=== PATIENT | female | born 1995 | race Caucasian/White ===

== ENCOUNTER 2019-08-10 20:02 | Emergency (ER) | payer MEDICAID, OTHER ==
[~2019-08-10] VITALS: Ht 160 cm; Wt 83.0 kg
[2019-08-10] MEDS ORDERED: NS IV 1000 ML 1,000 ML IV ONE (22:04)
--- NOTE | 2019-08-10 22:09 | ED Cough/URI ---
General Chief Complaint: Respiratory Problems Stated Complaint: SOB Nursing Triage Note: Pt ambulates to bed 1 with c/o SOB, nausea, and cough for 3 days. Pt states she's having more trouble breathing today. Pt appears short of breath with hoarse voice on arrival to room, O2 sat 100% on RA at this time. Pt denies any fever/chills. Sepsis Screen: No Definite Risk Source: patient Exam Limitations: no limitations History of Present Illness Date Seen by Provider: Aug 10, 2019 Time Seen by Provider: 22:08 Initial Comments 24-year-old female patient presents with complaints of shortness of breath, nausea, and cough for 3 days. Patient states she is having increased difficulty breathing today. Also c/o Hoarse voice, nasal congestion, and postnasal drainage. Patient denies fevers or chills. She does smoke 1 pack per day. began smoking at 12 yo. Timing/Duration: getting worse, other (3 day onset) Severity/Quality: productive cough (clear) Prior Episodes/Possible Cause: no prior episodes Modifying Factors: Worse With Coughing Allergies and Home Medications Allergies Coded Allergies: Penicillins (Verified Allergy, Unknown, 08/10/19) Home Medications Doxycycline Hyclate 100 Mg Tablet, 100 MG PO BID Prescribed by: FARHANA OWUSU on 08/11/19 0000 Prednisone 20 Mg Tab, 40 MG PO DAILY Prescribed by: FARHANA OWUSU on 08/11/19 0000 Patient Home Medication List Home Medication List Reviewed: Yes Review of Systems Review of Systems Constitutional: No chills, No dizziness, No fever; malaise EENTM: see HPI Respiratory: see HPI, cough; No dyspnea on exertion, No hemoptysis, No orthopnea; phlegm, short of breath; No stridor; wheezing Cardiovascular: No chest pain, No palpitations, No syncope Gastrointestinal: No abdominal pain, No constipation, No diarrhea; nausea; No vomiting Genitourinary: no symptoms reported Musculoskeletal: no symptoms reported Skin: no symptoms reported Psychiatric/Neurological: No Symptoms Reported All Other Systems Reviewed Negative Unless Noted: Yes (Negative excepted noted.) Past Chumwvz-Hidbqw-Evvzcw Hx Past Med/Social Hx: Reviewed Nursing Past Med/Soc Hx Patient Social History Alcohol Use: Denies Use Recreational Drug Use: No Smoking Status: Current Everyday Smoker Type Used: Cigarettes 2nd Hand Smoke Exposure: Yes Recent Foreign Travel: No Contact w/Someone Who Travel: No Recent Infectious Disease Expo: No Recent Hopitalizations: No Physical Abuse: No Sexual Abuse: No Mistreated: No Fear: No Seasonal Allergies Seasonal Allergies: Yes Past Medical History Surgeries: Yes Appendectomy, Gallbladder Respiratory: No Cardiac: No Neurological: No Genitourinary: No Gastrointestinal: No Musculoskeletal: No Endocrine: No HEENT: No Cancer: No Psychosocial: No Integumentary: No Family Medical History Reviewed Nursing Family Hx No Pertinent Family Hx Physical Exam Vital Signs - First Documented 08/10/19 20:06 Temp 36.7 Pulse 96 Resp 20 B/P (MAP) 96/69 (78) Pulse Ox 100 O2 Delivery Room Air Capillary Refill : Less Than 3 Seconds Height: '" Weight: lbs. oz. kg; 32.00 BMI Method: General Appearance: WD/WN, no apparent distress HEENT: PERRL/EOMI, TMs normal, pharyngeal erythema; No tonsillar exudate; other (positive nasal congestion) Neck: non-tender, full range of motion, supple, normal inspection Respiratory: lungs clear, no respiratory distress, no accessory muscle use, decreased breath sounds Cardiovascular: normal peripheral pulses, regular rate, rhythm, no edema, no gallop, no murmur Gastrointestinal: normal bowel sounds, non tender, soft, no organomegaly; No distended Extremities: no pedal edema, no calf tenderness, normal capillary refill Neurologic/Psychiatric: alert, normal mood/affect, oriented x 3 Skin: normal color, warm/dry Progress/Results/Core Measures Suspected Sepsis Recent Fever Within 48 Hours: No Infection Criteria Present: None New/Unexplained Altered Menta: No Sepsis Screen: No Definite Risk SIRS Temperature: Pulse: 96 Respiratory Rate: 20 Laboratory Tests 08/10/19 22:22: White Blood Count 11.9H Blood Pressure 96 /69 Mean: 78 Laboratory Tests 08/10/19 22:22: Creatinine 0.89, Platelet Count 248, Total Bilirubin 0.1 Results/Orders Lab Results Laboratory Tests Test 08/10/19 22:22 Range/Units White Blood Count 11.9 H 4.3-11.0 10^3/uL Red Blood Count 4.38 4.35-5.85 10^6/uL Hemoglobin 13.2 11.5-16.0 G/DL Hematocrit 40 35-52 % Mean Corpuscular Volume 92 80-99 FL Mean Corpuscular Hemoglobin 30 25-34 PG Mean Corpuscular Hemoglobin Concent 33 32-36 G/DL Red Cell Distribution Width 13.9 10.0-14.5 % Platelet Count 248 130-400 10^3/uL Mean Platelet Volume 11.1 H 7.4-10.4 FL Neutrophils (%) (Auto) 49 42-75 % Lymphocytes (%) (Auto) 35 12-44 % Monocytes (%) (Auto) 8 0-12 % Eosinophils (%) (Auto) 7 0-10 % Basophils (%) (Auto) 1 0-10 % Neutrophils # (Auto) 5.8 1.8-7.8 X 10^3 Lymphocytes # (Auto) 4.2 H 1.0-4.0 X 10^3 Monocytes # (Auto) 0.9 0.0-1.0 X 10^3 Eosinophils # (Auto) 0.9 H 0.0-0.3 10^3/uL Basophils # (Auto) 0.1 0.0-0.1 10^3/uL Sodium Level 138 135-145 MMOL/L Potassium Level 4.0 3.6-5.0 MMOL/L Chloride Level 110 H 98-107 MMOL/L Carbon Dioxide Level 18 L 21-32 MMOL/L Anion Gap 10 5-14 MMOL/L Blood Urea Nitrogen 18 7-18 MG/DL Creatinine 0.89 0.60-1.30 MG/DL Estimat Glomerular Filtration Rate > 60 BUN/Creatinine Ratio 20 Glucose Level 84 70-105 MG/DL Calcium Level 8.9 8.5-10.1 MG/DL Corrected Calcium 9.3 8.5-10.1 MG/DL Total Bilirubin 0.1 0.1-1.0 MG/DL Aspartate Amino Transf (AST/SGOT) 14 5-34 U/L Alanine Aminotransferase (ALT/SGPT) 11 0-55 U/L Alkaline Phosphatase 84 40-136 U/L Total Protein 5.8 L 6.4-8.2 GM/DL Albumin 3.5 3.2-4.5 GM/DL Micro Results Microbiology 08/10/19 Influenza Types A,B Antigen (VITO) - Final, Complete My Orders Orders - FARHANA OWUSU PA Chest Pa/Lat (2 View) (08/10/19 21:55) Influenza A And B Antigens (08/10/19 22:02) Ed Iv/Invasive Line Start (08/10/19 22:04) Cbc With Automated Diff (08/10/19 22:04) Comprehensive Metabolic Panel (08/10/19 22:04) Ns Iv 1000 Ml (Sodium Chloride 0.9%) (08/10/19 22:04) Albuterol/Ipra Inhalation Soln (Duoneb I (08/10/19 23:45) Svn Small Volume Nebulizer (08/10/19 23:32) Rx-Doxycycline Tablet (Rx-Vibramycin Tab (08/11/19 00:08) Rx-Albuterol Inhaler (Rx-Proair) (08/11/19 00:08) Prednisone Tablet (Deltasone Tablet) (08/11/19 00:15) Medications Given in ED Current Medications Medications Dose Ordered Sig/Gabby Route Start Time Stop Time Status Last Admin Dose Admin Albuterol/ Ipratropium 3 ml ONCE ONCE INH 08/10/19 23:45 08/10/19 23:47 DC 08/10/19 23:38 3 ML Prednisone 40 mg ONCE ONCE PO 08/11/19 00:15 08/11/19 00:16 DC 08/11/19 00:17 40 MG Sodium Chloride 1,000 ml @ 0 mls/hr Q0M ONCE IV 08/10/19 22:04 08/10/19 22:08 DC 08/10/19 22:35 0 MLS/HR Vital Signs/I&O 08/10/19 08/11/19 20:06 00:18 Temp 36.7 36.7 Pulse 96 96 Resp 20 20 B/P (MAP) 96/69 (78) 125/75 (78) Pulse Ox 100 100 O2 Delivery Room Air 08/11/19 00:00 Intake Total 1000 ml Balance 1000 ml Capillary Refill : Less Than 3 Seconds Blood Pressure Mean: 78 POS Diagnostic Imaging Diagonstic Imaging: Xray Plain Films/CT/US/NM/MRI: chest Comments No acute cardiopulmonary findings Reviewed: Reviewed by Me Departure Communication (Admissions) Patient seen and evaluated. Chest x-ray and labs obtained. Patient was given 1 L normal saline. Diagnostic and laboratory findings discussed with patient. Patient reports feeling much better with the nebulizer treatment. Plan for discharge to home. Patient was given a take home albuterol inhaler, doxy cycline, and 1 dose of prednisone prior to discharge. ED visit uneventful. Impression Primary Impression: Acute bronchitis Qualified Codes: J20.9 - Acute bronchitis, unspecified Disposition: 01 HOME, SELF-CARE Condition: Improved Departure-Patient Inst. Decision time for Depature: 23:58 Referrals: NO,LOCAL PHYSICIAN (PCP/Family) Primary Care Physician Patient Instructions: Acute Bronchitis Add. Discharge Instructions: All discharge instructions reviewed with patient and/or family. Voiced understanding. Medications as instructed. Tylenol extra strength [id number] as directed for pain. Ibuprofen 800 mg by mouth every 8 hours as needed for pain. [id number] Mucinex, saline nasal spray, Afrin nasal spray as needed for symptomatically. Follow-up with your family practitioner of choice to establish care and for recheck. Call for appointment time tomorrow morning. Return to the emergency department for worsened symptoms or any other concerns. Scripts Doxycycline Hyclate (Doxycycline Hyclate) 100 Mg Tablet 100 MG PO BID, #20 TAB 0 Refills Prov: FARHANA OWUSU 08/11/19 Prednisone (Prednisone) 20 Mg Tab 40 MG PO DAILY, #10 TAB 0 Refills Prov: FARHANA OWUSU 08/11/19 Work/School Note: Local Medical [employer] Listing FARHANA OWUSU Aug 10, 2019 22:08 POS
[2019-08-10 22:31] LABS: BASOPHILS # (AUTO) 0.1 10^3/uL (0.0-0.1); BASOPHILS % (AUTO) 1 % (0-10); EOSINOPHILS # (AUTO) 0.9 10^3/uL (0.0-0.3); EOSINOPHILS % (AUTO) 7 % (0-10); HEMATOCRIT 40 % (35-52); HEMOGLOBIN 13.2 G/DL (11.5-16.0); LYMPHOCYTES # (AUTO) 4.2 X 10^3 (1.0-4.0); LYMPHOCYTES % (AUTO) 35 % (12-44); MEAN CORPUSCULAR HEMOGLOBIN 30 PG (25-34); MEAN CORPUSCULAR HGB CONC 33 G/DL (32-36); MEAN CORPUSCULAR VOLUME 92 FL (80-99); MEAN PLATELET VOLUME 11.1 FL (7.4-10.4); MONOCYTES # (AUTO) 0.9 X 10^3 (0.0-1.0); MONOCYTES % (AUTO) 8 % (0-12); NEUTROPHILS # (AUTO) 5.8 X 10^3 (1.8-7.8); NEUTROPHILS % (AUTO) 49 % (42-75); PLATELET COUNT 248 10^3/uL (130-400); RED CELL DISTRIBUTION WIDTH 13.9 % (10.0-14.5); WHITE BLOOD COUNT 11.9 10^3/uL (4.3-11.0)
[2019-08-10 23:03] LABS: ALANINE AMINOTRANSFERASE 11 U/L (0-55); ALBUMIN 3.5 GM/DL (3.2-4.5); ALKALINE PHOSPHATASE 84 U/L (40-136); BILIRUBIN,TOTAL 0.1 MG/DL (0.1-1.0); BUN/CREATININE RATIO 20; CALCIUM 8.9 MG/DL (8.5-10.1); CARBON DIOXIDE 18 MMOL/L (21-32); CHLORIDE 110 MMOL/L (98-107); CREATININE SERUM 0.89 MG/DL (0.60-1.30); GFR ESTIMATED > 60; GLUCOSE 84 MG/DL (70-105); SODIUM 138 MMOL/L (135-145); TOTAL PROTEIN 5.8 GM/DL (6.4-8.2)
[2019-08-10] MEDS ORDERED: RT-ALBUTEROL/IPRATROPIUM 3 ML (DUONEB) VIAL INH ONE (23:45)
[2019-08-11] MEDS ORDERED: DOXY100T2 PO
[2019-08-11] MEDS ORDERED: PRD20T PO
[2019-08-11] MEDS ORDERED: RX-DOXYCYCLINE 100 MG (VIBRAMYCIN) TAB PPK#2 PO STA (00:08)
[2019-08-11] MEDS ORDERED: RX-ALBUTEROL INHALER (PROAIR) 8.5 GM IH STA (00:08)
[2019-08-11] MEDS ORDERED: predniSONE 20 MG TAB PO ONE (00:15)
[2019-08-11 00:18] VITALS: BP 125/75
--- NOTE | 2019-08-11 06:19 | Diagnostic Imaging Report ---
INDICATION: Shortness of breath fever COMPARISON: None. FINDINGS: Frontal and lateral views the chest demonstrate clear lungs bilaterally. The heart size is normal. There is no pneumothorax. Osseous structures are normal. IMPRESSION: No acute findings. Normal chest. Dictated by: Dictated on workstation # [id number]
== END 2019-08-11 00:19 | disposition home or self-care (01) ==
LOC: ER 20:04
DX: J20.9 Acute bronchitis, unspecified (principal); F17.210 Nicotine dependence, cigarettes, uncomplicated; Z88.0 Allergy status to penicillin; Z90.49 Acquired absence of other specified parts of digestive tract
CPT/HCPCS: 36415; 71046; 80053; 85025; 87804